=== PATIENT | male | born 1950 | race Hispanic/Latino ===

== ENCOUNTER 2018-07-15 12:39 | Emergency (ER) | payer MEDICARE ==
[2018-07-15] MEDS ORDERED: Labetalol 25mg/5ml Syringe IVP STA ×3 (13:14→16:05)
--- NOTE | 2018-07-15 13:36 | C.PDOC ---
History Of Present Illness 68 year old male with a history of HTN presents to the ED stating during his visit to his primary doctor for an annual checkup, his blood pressure was 200 systolic and he was referred to the ED. Prior to the symptoms, patient felt fl ushed. Patient denies headache, dizziness, vision changes or shortness of breath. He reports he no longer feels flushed and he feels fine. Time Seen by Provider: 07/15/18 12:44 Chief Complaint (Nursing): High Blood Pressure History Per: Patient History/Exam Limitations: no limitations Onset/Duration Of Symptoms: Hrs Current Symptoms Are (Timing): Gone Past Medical History Reviewed: Historical Data, Nursing Documentation, Vital Signs Vital Signs: Last Vital Signs Temp 98 F 07/15/18 12:45 Pulse 84 07/15/18 12:45 Resp 16 07/15/18 12:45 BP 228/77 H 07/15/18 13:12 Pulse Ox 98 07/15/18 12:45 - Medical History PMH: HTN Family History: States: Unknown Family Hx - Social History Hx Alcohol Use: No Hx Substance Use: No - Immunization History Hx Tetanus Toxoid Vaccination: No Hx Influenza Vaccination: No Hx Pneumococcal Vaccination: No Review Of Systems Eyes: Negative for: Vision Change Cardiovascular: Positive for: Palpitations Respiratory: Negative for: Shortness of Breath Neurological: Negative for: Headache, Dizziness Physical Exam - Physical Exam Appears: Well, No Acute Distress Skin: Normal Color, Warm, Dry Head: Atraumatic, Normacephalic Eye(s): bilateral: Normal Inspection, PERRL, EOMI Neck: Normal Chest: Symmetrical Cardiovascular: Rhythm Regular Respiratory: Normal Breath Sounds Gastrointestinal/Abdominal: Normal Exam, Soft, No Tenderness, No Guarding, No Rebound Back: Normal Inspection Extremity: Normal ROM, No Tenderness, No Pedal Edema, No Deformity Neurological/Psych: Oriented x3, Normal Speech Gait: Steady ED Course And Treatment - Laboratory Results Result Diagrams: 07/15/18 13:35 07/15/18 13:35 ECG: Interpreted By Me, Viewed By Me ECG Rhythm: Sinus Rhythm Rate From EC O2 Sat by Pulse Oximetry: 98 (RA) Pulse Ox Interpretation: Normal Medical Decision Making Medical Decision Making: Time: 1311 Impression: Hypertension Initial Plan: --EKG --Basic Metabolic Panel --Troponin --CBC w/ Differential --Chest Portable [RAD] --Labetalol 20mg IVP --Urinalysis Time: 1333 Normal sinus rhythm, 80bpm, normal axis, normal intervals, no ST elevation, has LVH After 20mg labetalol ivp, patient's BP is 174/81. Patient continues to deny any symptoms. CXR, EKG and lab results discussed with patient. All were unremarkable. Advised continuing antihypertensives and following up with PMD for possible medication adjustments. BP went back up to 208 systolic prior to discharge. Additional 20mg labetalol ivp given with no improvement. 40mg labetalol ivp given. Repeat BP was 188/91. Patient still has no symptoms. Disposition - Disposition Disposition: HOME/ ROUTINE Disposition Time: 17:04 Condition: STABLE Additional Instructions: [facility], thank you for letting us take care of you today. Your provider was Di Green MD and you were treated for HYPERTENSION. The emergency medical care you received today was directed at your acute symptoms. If you were prescribed any medication, please fill it and take as directed. It may take several days for your symptoms to resolve. Return to the Emergency Department if your symptoms worsen, do not improve, or if you have any other problems. Please contact your doctor or call one of the physicians/clinics you have been referred to that are listed on the Patient Visit Information form that is included in your discharge packet. Bring any paperwork you were given at discharge with you along with any medications you are taking to your follow up visit. Our treatment cannot replace ongoing medical care by a primary care provider outside of the emergency department. Thank you for allowing the [facility] team to be part of your care today. If you had an X-Ray or CT scan: A Radiologist will review the ED reading if any change in treatment is needed we will contact you. If you had a blood, urine, or wound culture: It will take several days for the results, if any change in treatment is needed we will contact you. If you had an STI test: It will take 48 hours for the results. Please call after 1 week if you have not heard back. Instructions: High Blood Pressure (DC) Forms: [facility] (Yi) - Clinical Impression Clinical Impression: Hypertension - Scribe Statement The provider has reviewed the documentation as recorded by the Scribe (Les Krause) All medical record entries made by the Scribe were at my direction and personally dictated by me. I have reviewed the chart and agree that the record accurately reflects my personal performance of the history, physical exam, medical decision making, and the department course for this patient. I have also personally directed, reviewed, and agree with the discharge instructions and disposition.
[2018-07-15] MEDS ORDERED: Labetalol 5mg/ml (4ml) ONE ×3 (13:38→16:20)
[2018-07-15 13:40] LABS: BASO % 0.3 % (0.0-2.0); EOS % 0.5 % (0.0-4.0); HEMOGLOBIN 15.2 g/dL (12.0-18.0); LYMPH # 1.5 K/uL (1.0-4.3); LYMPH % 25.8 % (20.0-40.0); MEAN CELL VOLUME 98.1 fL (80.0-94.0); MEAN CORPUSCULAR HEMOGLOBIN 34.2 pg (27.0-31.0); MEAN CORPUSCULAR HGB CONC 34.9 g/dL (33.0-37.0); MEAN PLATELET VOLUME 9.7 fL (7.2-11.7); MONO # 0.4 K/uL (0.0-0.8); MONO % 7.1 % (0.0-10.0); NEUT % 66.3 % (50.0-75.0); RBC 4.43 Mil/uL (4.40-5.90); RED CELL DISTRIBUTION WIDTH 12.8 % (11.5-14.5)
[2018-07-15 13:55] LABS: BLOOD UREA NITROGEN 19 mg/dL (9-20); CALCIUM 8.4 mg/dl (8.6-10.4); GFR NON-AFRICAN AMERICAN > 60
--- NOTE | 2018-07-15 14:53 | RAD ---
HISTORY: htn COMPARISON: None available. TECHNIQUE: Chest, one view. FINDINGS: Examination limited by habitus. LUNGS: No focal consolidation. Please note that chest x-ray has limited sensitivity for the detection of pulmonary masses. PLEURA: No significant pleural effusion identified. No definite pneumothorax . CARDIOVASCULAR: Borderline cardiomegaly. No significant atherosclerotic calcification present. OSSEOUS STRUCTURES: Postsurgical changes right humeral head. VISUALIZED UPPER ABDOMEN: Unremarkable. OTHER FINDINGS: None. IMPRESSION: Borderline cardiomegaly.
[2018-07-15 16:18] LABS: SQUAMOUS EPITHIAL < 1 /hpf (0-5); URINE BILIRUBIN NEGATIVE (NEGATIVE); URINE BLOOD NEGATIVE (NEGATIVE); URINE CLARITY Clear (Clear); URINE COLOR Yellow (YELLOW); URINE GLUCOSE (UA) 1+ mg/dL (Normal); URINE LEUKOCYTE ESTERASE NEG Leu/uL (Negative); URINE PROTEIN 2+ mg/dL (NEGATIVE); URINE UROBILINOGEN NORMAL mg/dL (0.2-1.0)
[2018-07-15 16:50] VITALS: BP 166/69; PULSE 69; RESP 18
[2018-07-15 17:09] VITALS: TEMP 98.3
[2018-07-15 19:25] VITALS: O2SAT 98
--- NOTE | 2018-07-16 17:37 | CARD ---
APPROVED REPORT Date of service: 07/15/2018 EKG Measurement Heart [id number] <Conclusion> Normal sinus rhythm Possible Left atrial enlargement Left ventricular hypertrophy Abnormal ECG
== END 2018-07-15 17:09 | disposition home or self-care (01) ==
LOC: C.ER 12:39
DX: I10 Essential (primary) hypertension (principal)